=== PATIENT | male | born 1945 | race Caucasian/White ===

== ENCOUNTER 2016-08-17 08:19 | Outpatient (CLI) | payer MEDICARE, OTHER ==
[2016-08-17 08:50] LABS: Hemoglobin A1c 5.1 % (4.0-6.0)
[2016-08-17 08:52] LABS: ALT (SGPT) 14 U/L (0-55); AST (SGOT) 19 U/L (5-34); Albumin 4.3 g/dL (3.4-4.8); Alkaline Phosphatase 103 U/L (40-150); Anion Gap 14 mmol/L (10-20); BUN (Urea Nitrogen) 22 mg/dL (8.4-25.7); Bilirubin, Total 1.7 mg/dL (0.2-1.2); Calc. Creatinine Clearance 0 mL/min (70-130); Calcium 9.6 mg/dL (7.8-10.44); Carbon Dioxide 26 mmol/L (23-31); Cardiac Risk 3.6 (Less than 4.5); Chloride 103 mmol/L (98-107); Cholesterol 187 mg/dL (< 200 Desired); Estimated GFR-MDRD 79; Globulin 2.4 g/dL (2.4-3.5); Glucose 89 mg/dL (83-110); HDL Cholesterol 52 mg/dL (>60 Neg Risk); LDL Cholesterol, Calculated 119 mg/dL; Potassium 4.2 mmol/L (3.5-5.1); Protein, Total 6.7 g/dL (5.8-8.1); Sodium 139 mmol/L (136-145); Triglycerides 80 mg/dL (Less than 150)
[2016-08-17 17:30] LABS: Creatinine, Urine 116.29 mg/dL (63-166); Microalbumin/Creat Ratio 25.8 mg/g (Less than 30)
== END 2016-08-17 08:20 | disposition home or self-care (01) ==
LOC: MADLAB 08:19
PROVIDERS: ATTEND Internal Medicine
DX: E78.5 Hyperlipidemia, unspecified (principal); E11.29 Type 2 diabetes mellitus with other diabetic kidney complication
CPT/HCPCS: 36415; 80053; 80061; 82043; 83036

== ENCOUNTER 2017-02-22 18:11 | Emergency (ER) | payer MEDICARE ==
[2017-02-22 18:35] LABS: #Basophils 0.1 thou/uL (0.0-0.2); #Eosinphils 0.1 thou/uL (0.0-0.7); #Lymphocytes 2.1 thou/uL (1.20-3.40); #Monocytes 0.6 thou/uL (0.11-0.59); #Neutrophils 3.9 thou/uL (1.40-6.50); %Basophils 1.2 % (0.0-1.0); %Eosinophils 1.9 % (0.0-10.0); %Lymphocytes 30.6 % (21.0-51.0); %Monocytes 9.3 % (0.0-10.0); Hemoglobin 13.1 g/dL (14.0-18.0); Mean Corpuscular HGB CONC 34.1 g/dL (32.0-36.0); Mean Corpuscular Hemoglobin 32.2 pg (27.0-31.0); Mean Corpuscular Volume 94.2 fl (80.0-94.0); Mean Platelet Volume 8.3 fL (7.4-10.4); Platelet Count 154 thou/uL (130-400); RBC Distribution Width 12.1 % (11.5-14.5); Red Blood Cell (RBC) Count 4.06 mill/uL (4.70-6.10); White Blood Cell (WBC) Count 6.8 thou/uL (4.8-10.8)
[2017-02-22 18:43] LABS: INR-International Normal Ratio 1.1; PTT 37.3 SEC (22.9-36.1); Prothrombin Time 14.6 SEC (12.0-14.7)
--- NOTE | 2017-02-22 18:46 | CT ---
HEAD CT WITHOUT CONTRAST 02/22/17 COMPARISON: 08/11/12 HISTORY: Altered mental status. TECHNIQUE: Serial axial CT imaging at 5 mm intervals from vertex through skull base without contrast. FINDINGS: Imaged paranasal sinuses/mastoid air cells are well aerated. There is no displaced calvarial fractur e. No intracranial hemorrhage, midline shift, mass effect, or ventricular enlargement. IMPRESSION: No acute findings. POS: [facility]
[2017-02-22 18:55] LABS: ALT (SGPT) 14 U/L (8-55); AST (SGOT) 19 U/L (5-34); Albumin 4.2 g/dL (3.4-4.8); Alkaline Phosphatase 75 U/L (40-150); Anion Gap 14 mmol/L (10-20); BUN (Urea Nitrogen) 27 mg/dL (8.4-25.7); Bilirubin, Total 1.3 mg/dL (0.2-1.2); Calc. Creatinine Clearance 0 mL/min (70-130); Calcium 9.4 mg/dL (7.8-10.44); Carbon Dioxide 26 mmol/L (23-31); Chloride 105 mmol/L (98-107); Estimated GFR-MDRD 75; Globulin 2.5 g/dL (2.4-3.5); Glucose 97 mg/dL (83-110); Potassium 4.1 mmol/L (3.5-5.1); Protein, Total 6.7 g/dL (5.8-8.1); Sodium 141 mmol/L (136-145)
[2017-02-22 19:00] LABS: CKMB 2.3 ng/mL (0-6.6); Troponin I Less than 0.010 ng/mL (< 0.028)
== END 2017-02-22 20:06 | disposition home or self-care (01) ==
LOC: MADERS 18:11
DX: R41.82 Altered mental status, unspecified (principal); R53.1 Weakness; G20 Parkinson's disease; I95.9 Hypotension, unspecified; E11.9 Type 2 diabetes mellitus without complications; E03.9 Hypothyroidism, unspecified; F43.10 Post-traumatic stress disorder, unspecified; Z79.899 Other long term (current) drug therapy; Z79.82 Long term (current) use of aspirin
CPT/HCPCS: 36416; 70450; 80053; 82553; 84484; 85025; 85610; 85730; 93005; 94760

== ENCOUNTER 2017-05-30 09:34 | Outpatient (CLI) | payer MEDICARE ==
--- NOTE | 2017-05-30 10:52 | CT ---
CT BRAIN WITHOUT CONTRAST: HISTORY: Dizziness, fall, memory loss. FINDINGS: Comparison is made with the exam of 02/22/17. No evidence of acute infarct, hemorrhage, midline shift, or abnormal extraaxial fluid collections are seen. The ventricular size is stable and the basilar cisterns patent. The bony calvarium is intact . The visualized paranasal sinuses and mastoid air cells are well aerated. IMPRESSION: No CT evidence of acute intracranial process. POS: [facility]
== END 2017-05-30 09:35 | disposition home or self-care (01) ==
LOC: MADCT 09:34
PROVIDERS: ATTEND Student in an Organized Health Care Education/Training Program
DX: R41.3 Other amnesia (principal); R51 Headache; R29.6 Repeated falls
CPT/HCPCS: 70450

== ENCOUNTER 2018-02-03 19:23 | Outpatient (CLI) | payer MEDICARE ==
[2018-02-04 09:33] LABS: ALT (SGPT) 10 U/L (8-55); AST (SGOT) 23 U/L (5-34); Albumin 4.2 g/dL (3.4-4.8); Alkaline Phosphatase 96 U/L (40-150); Anion Gap 17 mmol/L (10-20); BUN (Urea Nitrogen) 24 mg/dL (8.4-25.7); Bilirubin, Total 1.3 mg/dL (0.2-1.2); Calc. Creatinine Clearance 0 mL/min (70-130); Calcium 9.3 mg/dL (7.8-10.44); Carbon Dioxide 21 mmol/L (23-31); Chloride 107 mmol/L (98-107); Estimated GFR-MDRD 82; Globulin 2.5 g/dL (2.4-3.5); Glucose 89 mg/dL (83-110); Potassium 4.4 mmol/L (3.5-5.1); Protein, Total 6.7 g/dL (5.8-8.1); Sodium 141 mmol/L (136-145)
[2018-02-04 09:41] LABS: Eosinophils 2 % (0-10); Lymphocytes 22 % (21-51); MDiff Complete? YES; Mean Corpuscular HGB CONC 32.1 g/dL (32.0-36.0); Mean Corpuscular Volume 93.5 fL (78.0-98.0); Monocytes 5 % (0-10); Neutrophil 71 % (42-75); Platelet Count 167 thou/uL (130-400); RBC Distribution Width 12.2 % (11.5-14.5); Red Blood Cell (RBC) Count 4.67 mill/uL (4.70-6.10); White Blood Cell (WBC) Count 8.8 thou/uL (4.8-10.8)
[2018-02-04 14:17] LABS: Follow-up Chemistry Comp? YES; Follow-up Result - Chemistry REPORT FAXED
== END 2018-02-03 19:24 | disposition home or self-care (01) ==
LOC: MADLAB 19:23
DX: I12.9 Hypertensive chronic kidney disease with stage 1 through stage 4 chronic kidney disease, or unspecified chronic kidney disease (principal); N18.9 Chronic kidney disease, unspecified
CPT/HCPCS: 80053; 85025

== ENCOUNTER 2018-03-28 16:59 | Emergency (ER) | payer MEDICARE | END 2018-03-28 18:30 | disposition home or self-care (01) | LOC: MADERS 16:59 | DX: F91.8 Other conduct disorders (principal); G20 Parkinson's disease; E03.9 Hypothyroidism, unspecified; E11.9 Type 2 diabetes mellitus without complications; F43.10 Post-traumatic stress disorder, unspecified; Z79.899 Other long term (current) drug therapy; Z79.82 Long term (current) use of aspirin | CPT/HCPCS: 99284 ==

== ENCOUNTER 2019-12-11 17:15 | Emergency (ER) | payer MEDICARE ==
[2019-12-11 18:36] LABS: Bilirubin Negative (Negative); Blood, Urine Negative (Negative); Clarity Clear (Clear); Glucose, Urine (Dipstick) Negative (Negative); Ketone, Urine Negative (Negative); Leukocyte Negative (Negative); Nitrite Negative (Negative); Protein, Urine (Dipstick) Negative (Neg-Trace); Specific Gravity, Urine 1.025 (1.005-1.030)
== END 2019-12-11 22:08 | disposition home or self-care (01) ==
LOC: MADERS 17:15
DX: I10 Essential (primary) hypertension (principal); R30.0 Dysuria; E11.9 Type 2 diabetes mellitus without complications; E03.9 Hypothyroidism, unspecified; F43.10 Post-traumatic stress disorder, unspecified; G20 Parkinson's disease; Z79.899 Other long term (current) drug therapy; Z79.82 Long term (current) use of aspirin
CPT/HCPCS: 51701; 81003